=== PATIENT | female | born 1955 | race Two or more races ===

== ENCOUNTER 2022-01-11 12:38 | Emergency (ER) | payer OTHER ==
[~2022-01-11] VITALS: Ht 170.2 cm; Wt 90.7 kg
[2022-01-11] MEDS ORDERED: JANUVIA100 MG PO (12:47)
[2022-01-11] MEDS ORDERED: ROSUVASTATIN CA40 MG PO (12:47)
[2022-01-11] MEDS ORDERED: ESCITALOPRAM OX20 MG PO (12:47)
== END 2022-01-11 18:09 | disposition home or self-care (01) ==
LOC: ER 12:38
DX: A49.3 Mycoplasma infection, unspecified site (principal); J10.1 Influenza due to other identified influenza virus with other respiratory manifestations; Z88.0 Allergy status to penicillin